=== PATIENT | female | born 1955 | race African-American/Black ===

== ENCOUNTER 2024-03-04 10:47 | Inpatient (IN) | payer OTHER, SELFPAY ==
[2024-03-02 19:32] VITALS: BP 155/100
--- NOTE | 2024-03-02 19:39 | EDRN ---
TRIAGE NOTE BY Billie JULES RN
[2024-03-02 19:53] LABS: Urine Albumin Negative (Neg - Trace); Urine Bilirubin Negative (Negative); Urine Character Clear (Clear); Urine Color Yellow; Urine Glucose Negative (Negative); Urine Ketone Negative (Negative); Urine Leukocyte 1+ (Negative); Urine Nitrite Negative (Negative); Urine Occult Blood Negative (Negative); Urine Specific Gravity 1.015 (<1.030); Urine Urobilinogen Negative (Neg - 1+)
[2024-03-02 19:57] LABS: % Basophils 0.5 % (0-2); % Eosinophils 1.8 % (0-6); % Immature Granulocytes 0.2 % (0-0.5); % Lymphocytes 51.5 % (20.5-51.1); Absolute Eosinophils 0.2 10^3/uL (0-0.7); Absolute Lymphocytes 4.4 10^3/uL (1.2-3.4); Absolute Monocytes 0.6 10^3/uL (0.1-0.6); Absolute Neutrophils 3.3 10^3/uL (1.4-6.5); Hematocrit 36.2 % (37.0-47.0); Hemoglobin 11.6 g/dL (12.0-16.0); Mean Corpuscular Hgb 29.4 pg (27.0-31.0); Mean Corpuscular Volume 91.6 fL (81.0-99.0); Mean Platelet Volume 9.8 fL (7.4-10.4); Nucleated Red Blood Cells % 0 %; Platelet Count 223 10^3/uL (130-400); Red Blood Cell Count 3.95 10^6/uL (4.20-5.40); Red Cell Dist. Width 13.2 % (11.5-14.5); White Blood Cell Count 8.5 10^3/uL (4.8-10.8)
[2024-03-02 20:03] LABS: Urine Red Blood Cell None Seen /HPF (0-2)
[2024-03-02 21:22] LABS: ALT (SGPT) 23 U/L (0-35); AST (SGOT) 31 U/L (14-36); Albumin 4.5 g/dl (3.5-5.0); Alkaline Phosphatase 78 U/L (38-126); Blood Urea Nitrogen 17 mg/dl (7-17); Calcium 10.6 mg/dl (8.4-10.2); Carbon Dioxide 33 mmol/L (22-30); Chloride 97 mmol/L (98-107); Glucose 130 mg/dl (70-99); Potassium 3.8 mmol/L (3.5-5.1); Sodium 138 mmol/L (135-145); Total Bilirubin 0.4 mg/dl (0.2-1.3); Total Protein 7.5 g/dl (6.3-8.2); eGFR > 60.00
[2024-03-03] VITALS (15 sets, daily range): BP systolic 112–145; BP diastolic 52–100; PULSE 72–73; O2SAT 100; BMI 23.6
--- NOTE | 2024-03-03 00:23 | ED.GENMED ---
History of Present Illness
General
Chief Complaint: Change in Mental Status
Source: patient and spouse
Exam Limitations: none
Time Seen by Provider: 03/03/24 00:10
Travel History
Have you had any contact with someone who has COVID-19?: No
Do you have any symptoms of coronavirus? Fever > 100 degrees, chills, cough, shortness of breath, sore throat, loss of taste or smell, muscle aches, or headache?: No
History of Present Illness
History of Present Illness:
See MDM
Past History
Past History
ED Past Medical History: HTN, Hypercholesterolemia and NIDDM
ED Past Surgical History: None
Social History
Tobacco: Non-smoker
Alcohol: None
Phy Exam
Physical Exam
Physical Exam:
See MDM
Scores
NIH Stroke Score
Level of Consciousness: 0 - Alert
LOC Questions: 0-Answers both correctly
LOC Commands: 0-Performs both correctly
Best Horizontal Gaze: 0-Normal
Visual Parr: 0=Normal, no visual loss
Facial Palsy: 0=Normal, symmetrical
Motor - Right Arm: 0=No drift 10 seconds
Motor - Left Arm: 0=No drift 10 seconds
Motor - Right Le-No drift 5 seconds
Motor - Left Le-No drift 5 seconds
Limb Ataxia: 0-Absent
Sensation: 0-Normal
Best Language: 0-No aphasia
Dysarthria: 0-Normal
Extinction and Inattention: 0-No abnormality
Total Score:: 0
Course
Orders/Labs/Results
Orders:
Orders
03/02/24 19:[address] [CT Head W/o Iv Contrast] Urgent
Comment:
Reason For Exam: FALL, CHANGE MENTAL STATUS TODAY
03/02/24 19:45
Complete Blood Count/With Diff Urgent
Comprehensive Metabolic Panel Urgent
Urinalysis Urgent
Date Specimen was Collected: 03/02/24
Time Specimen was Collected: 19:39
Urine Microscopic Urgent
Date Specimen was Collected: 03/02/24
Time Specimen was Collected: 19:39
03/03/24 00:23
Aspirin Chewable [Low Strength Aspirin] 324 mg PO NOW STA
03/03/24 00:32
Electrocardiogram (*1) Urgent
Reason for Study: TIA/Stroke
EKG- Treatment ONCE
Abnormal Lab Results
03/02/24
19:45
RBC 3.95 L 10^6/uL
(4.20-5.40)
Hgb 11.6 L g/dL
(12.0-16.0)
Hct 36.2 L %
(37.0-47.0)
MCHC 32.0 L g/dL
(33.0-37.0)
Absolute Lymphs (auto) 4.4 H 10^3/uL
(1.2-3.4)
Neutrophils % 39.0 L %
(42.2-75.2)
Lymphocytes % 51.5 H %
(20.5-51.1)
Chloride 97 L mmol/L
(98-107)
Carbon Dioxide 33 H mmol/L
(22-30)
Glucose 130 H mg/dl
(70-99)
Calcium 10.6 H mg/dl
(8.4-10.2)
Ur Leukocyte Esterase 1+ A
(Negative)
03/02/24 19:45
03/02/24 19:45
Vital Signs
Initial and Last Documented VS:
Initial Vital Signs
Temp Pulse Resp BP Pulse Ox
97.8 F 78 18 155/100 99
03/02/24 19:32 03/02/24 19:32 03/02/24 19:32 03/02/24 19:32 03/02/24 19:32
Last Documented Vital Signs
Temp Pulse Resp BP Pulse Ox
97.8 F 78 18 145/79 99
03/02/24 19:32 03/02/24 19:32 03/02/24 19:32 03/03/24 01:16 03/03/24 01:17
MDM/Problems Addressed
Differential Diagnosis Includes:
HPI and MDM Narrative:
69-year-old female presenting with resolved slurred speech and arm weakness. at bedside. Patient states she noted that her speech was off a little bit but did not think much of it. She left a voicemail for her daughter. The daughter
called the father indicating that the voicemail appeared slurred. Patient states symptoms lasted for about 30 minutes or so. She states she was recently diagnosed with diabetes. She has a history of high blood pressure and hyperlipidemia.
Patient had a trip and fall a few weeks ago and injured her left forehead. She is unsure if this is related currently, symptoms are resolved
Physical exam
General: Well appearing and non-toxic
HEENT: protecting airway. Bruising to left forehead
Neck: supple
CV: No evidence of cyanosis. Regular rate and rhythm
Resp: No accessory muscle use
Abd: Non-distended
Extremities: No deformities
Neuro: alert. NIH stroke scale 0
Psych: Normal affect
Skin: Intact
Problems Addressed including Acute and Chronic Conditions affecting care:
1. TIA
Acuity: acute
Prognosis: stable
Details: Symptoms currently resolved. Given age and risk factors, will admit. Patient given aspirin. CT head negative
Differential Diagnosis (but not limited to): TIA, stroke, intracranial hemorrhage
Testing considered: CT angiogram head and neck
Drug therapy (if applicable): OTC meds, please see d/c instruction regarding Rx drugs
Amount and/or Complexity of Data Reviewed
Clinical info obtained from: Patient
External data reviewed: N/A
Labs I independently reviewed (but not limited to): White blood cell count normal
Radiology: The CT scan was personally and independently reviewed. In addition, official CT report reviewed.
Pulse Ox: not hypoxic
EKG independently reviewed: Sinus rhythm, normal axis, no STEMI
Construction Rigger: N/A
Critical Care: N/A
Risk of Complication:
Social Determinants of health: Good social support
Discussed with other providers: Hospitalist
Escalation of Care includes Admit/Obs: Given age and risk factors, will admit for TIA workup
Occasional wrong word or 'sound a like' substitutions may have occurred due to the inherent limitations of voice recognition software. Read the chart carefully and recognize, using context, where substitutions have occurred.
*Critical Care Note
Total Time (30-74mins, 75-104mins- exclusive of procedures): Not Applicable
ED Attending Note
-
Portions of this chart may have been created with voice recognition software.� Occasional wrong word or��sound alike� substitutions may have occurred due to the inherent limitations of voice recognition software.
Discharge Plan
Departure
Patient Disposition: Admit
Date of Disposition: 03/03/24
Time of Disposition: 00:30
Admit to: Telemetry
Presentation/result/management discussed w/ accepting MD/DO: Hospitalist
Discharge Problem:
Brain TIA
Interventions
Interventions:
*Risk Screen - Suicide Last Done: 03/02/24 19:32
*General Assessment Last Done: 03/03/24 01:17
*Neglect/Abuse Screening Last Done: 03/02/24 19:32
ED- Fall Risk Assessment Last Done: 03/03/24 01:17
*ED COVID-19 Vaccine History Last Done: 03/03/24 01:17
ED- Pulmonary Assessment Last Done: 03/03/24 01:17
ED- Neurological Assessment Last Done: 03/03/24 01:17
ED- Cardiac Assessment Last Done: 03/03/24 01:17
ED Swallowing Screen Last Done: 03/03/24 01:15
Discharge Date and Time
Print Language: SERBIAN
[2024-03-03] MEDS: LOW STRENGTH ASPIRIN 324 MG PO (01:11)
--- NOTE | 2024-03-03 02:47 | HPS.HSE ---
Family Physician
-
Family Physician: Ana Dasilva, DO
Chief Complaint
-
slurred speech
History of Present Illness
I could not get any information from the patient who is poor historian - is constantly correcting the answers when interview
Patient does not remember the HPI very well
Information gathered by chart review and speaking to at bed side
69F No prior visit to with HX HX HTN , HLD and T2DM seen at ER for evaluation fo abn speech, arm weakness and AMS
Patient tripped and fall 1.5 weeks ago and banged her head - It was mechanical fall
Per spouse , patient is not herself since
Daughter noted slurred speech for about 30 Mins and slow cognitive speed.
NIH was zero at ER for stroke assessment
Medical History
Past Medical History
Past Medical History: Reports HTN, Hypercholesterolemia and NIDDM
Past Surgical History: Reports None
Social History
Tobacco: Non-smoker
Alcohol: None
Drug: None
Family History
Family History: Not pertinent
Allergies / Home Medications
Allergies reflects when Allergies were last updated in [email or web address].
Home Medications with original date entered in [email or web address]
Allergy/Medication List:
Allergies
Allergy/AdvReac Type Severity Reaction Status Date / Time
No Known Allergies Allergy Verified 03/02/24 19:37
If medication reconciliation has not been performed, why?: Medication List N/A
Review of Systems
-
Constitutional: Reports No Symptoms
EENT: Reports No Symptoms
Respiratory: Reports No Symptoms
Cardiac: Reports No Symptoms
Abdomen/GI: Reports No Symptoms
: Reports No Symptoms
Musculoskeletal: Reports No Symptoms
Skin: Reports No Symptoms
Neurological: Reports See HPI and Weakness
Endocrine: Reports No Symptoms
Hematologic/Lymphatic: Reports No Symptoms
Psych: Reports No Symptoms
Physical Exam
Vital Signs
Vital Signs
Temp Pulse Resp BP Pulse Ox
97.8 F 78 18 129/71 98
03/02/24 19:32 03/02/24 19:32 03/02/24 19:32 03/03/24 02:00 03/03/24 02:00
Physical Exam
General: No Apparent Distress
HEENT: Anicteric and Moist mucous membranes
Respiratory: Clear; No Wheezes, Rales or Rhonchi
Cardiac: S1/S2 and Regular Rhythm
Breast: Deferred by me
GI: Soft, Non Tender, Non Distended and Normal Bowel Sounds
Rectal: Deferred by Provider
Genito-urinary: Deferred by me
Musculoskeletal: No Edema
Skin: Warm and Dry
Neuro: Nonfocal/grossly intact
Psych: Calm
Laboratory Results
-
03/02/24 19:45
03/02/24 19:45
Laboratory Results
Total Bilirubin 0.4 mg/dl (0.2-1.3) 03/02/24 19:45
AST 31 U/L (14-36) 03/02/24 19:45
ALT 23 U/L (0-35) 03/02/24 19:45
Alkaline Phosphatase 78 U/L (38-126) 03/02/24 19:45
Data Reviewed
-
CT Scan: Report Reviewed by me
Lab Data: Labs Reviewed by me
Impression/Plan
-
Data
Hgb 11.6
Cl 97
CO2 33
Nl Cr
Nl eGFR
BG 130
Ca 10.6
NEG UA
HCT
1. No CT evidence for acute intracranial hemorrhage or transcortical infarct.
2. Moderate white matter leukoaraiosis in the frontal and parietal lobes.
3. Mild diffuse cerebral and cerebellar volume loss.
EKG
NORMAL SINUS RHYTHM
MINIMAL VOLTAGE CRITERIA FOR LVH, MAY BE NORMAL VARIANT ( Jun product )
POSSIBLE INFERIOR INFARCT , AGE UNDETERMINED
ABNORMAL ECG
NO PREVIOUS ECGS AVAILABLE
No prior admission to
ASSESSMENT [facility] PLAN
Pending Rx reconciliation
Transient abnormal slurred speech for 30 mins with weakness
At ER NIH was zero
Recent mechanical fall and hit head sustained bruise
NEG HCT
Very vague historian ? MCI
DDX : TIA vs post concussion syndrome
- Brain MRI and MRA H & N
- S/P ASA loading - then baby ASA DAILY
- Neuro consult
HLD
- On atorvastatin but did not recall the dose
- ordered Atorvastatin 40 HS
Known HX DMT2 on Metformin
- add ISS low pending Rx reconciliation
- Held Metformin for now
Essential HTN
- add IV Hydralazine PRN only id SBP > 185, DBP > 115
- On Amlodipine per spouse
DVT Px; SCD
Full code
Obs TLM
[2024-03-03 07:35] LABS: Total Cholesterol 169 mg/dl (50-199); Triglyceride 121 mg/dl (10-149); Very Low Density Lipoprotein 24 mg/dl (0-30)
[2024-03-03 08:00] LABS: HDL Cholesterol 65 mg/dl; LDL Cholesterol, Calculated 80 mg/dl
[2024-03-03] MEDS: LOW STRENGTH ASPIRIN 81 MG PO (08:13)
[2024-03-03] MEDS: NORVASC 5 MG PO (08:13)
--- NOTE | 2024-03-03 08:19 | CON.NEURO4 ---
Addendum entered and electronically signed by Vin Flannery MD 03/03/24 10:19:
Studies reviewed.
I have personally examined the patient. I reviewed and agree with the TANK WORKER's Note.
My addenda:
Awake, alert, interactive. No acute distress.
Speech intact.
Follows 2-step requests w/o difficulty. No tremor.
Extra-ocular movements grossly intact.
Facial movements full and symmetric. Hearing intact to normal conversational volume.
Normal UE movements bilaterally.
Neck: full ROM.
Chest: no dyspnea
Heart: no JVD
Ext: (-) Clubbing, (-) Cyanosis, (-) Edema
IMPRESSIONS/RECOMMENDATIONS:
Abrupt onset of slurred speech
Questionably due to TIA/stroke. Differential diagnosis includes seizure although etiology for same is unclear other than the patient's minor head injury recently
Check MRI of brain
Check MRA head and neck
Continue atorvastatin 80 mg daily
Initiated aspirin, continue
Goal of normotension
Goal of normoglycemia
D/W patient
Will continue to follow patient.
Original Note:
Documented by User: Deandra Parnell NP 03/03/24 09:31
Consultation - Neurology 4
-
CONSULTING PHYSICIAN: Vin Flannery MD
REFERRING PHYSICIAN: Hospitalists/Dr. Hugo
DICTATED BY: MILA Solis
DATE/TIME OF REQUEST: 03/02/24
DATE/TIME OF CONSULTATION: 03/03/24
Reason for Consultation: Slurred speech
History of Present Illness:
This is a 69-year-old right-handed female who has presented to the hospital on 03/02/24 with report of slurred speech. Patient has poor insight to yesterday's events so some of this information is obtained from medical records. Patient reports that
two nights ago on 03/01/24 she had a mild headache which was unusual for her. Yesterday afternoon (03/02/24), she reports calling her daughter and her daughter noted that her speech sounded slurred. Her daughter called the patient's spouse to notify
him and when he check on the patient he noted that her speech was slurred as well. He also had her manager golf his hands and felt that both hand grasps were weak. Patient thinks her slurred speech resolved in about 30 minutes but she isn't quite sure. On
arrival to the ER, CT head was obtained and is negative for any acute abnormalities. Blood pressure was 155/100. NIHSS 0. She was not a candidate for TNK/IAT due to resolution of symptoms/NIHSS 0. Today (03/03/24), patient reports feeling back to her
baseline. She denies any headache, dizziness, speech/swallow difficulty, numbness, weakness, nausea, chest pain, palpitations, and shortness of breath. She reports having a trip and fall in her backyard on 02/03/24 with left forehead laceration and
bilateral eye bruising. She was evaluated by her ophtalmologist after the fall and reports her exam was normal. She denies any history of TIA, stroke, or events similar to this in the past. She is not taking any blood-thinning medications.
Past Medical History: HTN, HLD, NIDDM, hypothyroidism
Surgical History: Abdominoplasty.
Family History: Reviewed and noncontributory.
Social History: Denies tobacco, alcohol, and illicit drug use. Lives with her , she is a retired nurse.
Allergies: No known allergies.
Home Medications: See below.
Review of Symptoms:
Patient denies any fever, headache, chest pain, shortness of breath, GI or symptoms.
�Per the HPI.�All systems are reviewed negative except above.
Physical Exam:
The patient is afebrile, abdomen is nondistended, breathing is unlabored, skin is warm and dry, no edema.
NIH Stroke Scale:
I performed the NIH stroke scale on the patient on 03/03/24 at 0830. The patient scored 0 points on the NIH stroke scale assessment, which were assigned as follows: See below.
Neurologic Examination:
The patient is awake, alert and oriented x 3. She is able to follow commands and answer questions appropriately. There is no aphasia or dysarthria. On cranial nerve assessment, pupils are 3 mm bilateral, round and reactive to light and
accommodation. Visual parr are full. Extraocular movements are intact. Facial sensations are intact and bilaterally symmetrical, there is no facial asymmetry. Hearing is intact bilaterally to normal conversation volume. Tongue palate and uvula
are midline. Sternocleidomastoid strengths are full bilaterally. Motor strengths are 5/5 bilateral upper and lower extremities on medical research [place] scale. There is no drift or involuntary movement noted. Deep tendon reflexes are 2+ bilateral
upper and 1+ bilateral lower extremities and Babinski is absent bilaterally. There was no extinction noted on double simultaneous stimulation. Coordination is intact by finger to nose bilaterally.
Lab Results: See below.
Neuro Imaging:
1. CT Head 03/02/24: No CT evidence for acute intracranial hemorrhage or transcortical infarct. Moderate white matter leukoaraiosis in the frontal and parietal lobes. Mild diffuse cerebral and cerebellar volume loss.
Differentials for the patient's presentation include:
1. TIA or small stroke possible given stroke risk factors.
2. Partial seizure possible given recent head injury but less likely.
3. Metabolic abnormality possibly producing transient speech changes.
Patient has the following risk factors for their symptoms: HTN, HLD, NIDDM, age
IV Tenecteplase/IAT candidacy: She was not a candidate for TNK/IAT due to resolution of symptoms/NIHSS 0.
Recommendations:
-Continue aspirin 81mg daily.
-MRI brain, MRA head/neck ordered/pending.
-Permissive hypertension SBP<220, DBP<120 until 1400 this afternoon, then goal normotension.
-Checking blood work for metabolic abnormalities.
-If MRI brain demonstrates a stroke LDL goal will be <70. LDL is 80. Continue home atorvastatin 80mg daily for now.
-Goal normoglycemia, hbA1c is pending.
-PT/OT/ST evaluations.
-NIHSS and neurological checks per unit guidelines.
-Provide patient with a stroke education packet.
-DVT prophylaxis.
-Will follow pending results.
Discussed patient care with: Dr. Flannery, the patient
Vital Signs and Labs
-
Vital Signs and Labs:
Vital Signs
Temp Pulse Resp BP Pulse Ox
97.8 F 64 15 116/74 96
03/02/24 19:32 03/03/24 08:00 03/03/24 08:00 03/03/24 08:00 03/03/24 08:00
Lab Results
03/02/24 19:45
03/02/24 19:45
Sodium 138 mmol/L (135-145) 03/02/24 19:45
Potassium 3.8 mmol/L (3.5-5.1) 03/02/24 19:45
BUN 17 mg/dl (7-17) 03/02/24 19:45
Glucose 130 mg/dl (70-99) H 03/02/24 19:45
Calcium 10.6 mg/dl (8.4-10.2) H 03/02/24 19:45
LDL Cholesterol, Calc 80 mg/dl 03/03/24 07:12
Medications
-
Active Medications
Generic Name Dose Route Start Last Admin
Trade Name Freq PRN Reason Stop Dose Admin
Acetaminophen 650 mg 03/03/24 04:03
Acetaminophen 650 Mg Rectal Suppository RECTAL 03/31/24 04:02
Q4HPRN PRN
ALEGRE, mild pain, or temp >100.4F
Acetaminophen 650 mg 03/03/24 04:03
Acetaminophen 325 Mg Tablet PO 03/31/24 04:02
Q4HPRN PRN
ALEGRE, mild pain, or temp >100.4F
Amlodipine Besylate 5 mg 03/03/24 08:00 03/03/24 08:13
Amlodipine 5 Mg Tablet PO 03/31/24 07:59 5 mg
DAILY DULCE MARIA Administration
Aspirin 81 mg 03/03/24 08:00 03/03/24 08:13
Aspirin 81 Mg Chewable Tablet PO 03/31/24 07:59 81 mg
DAILY DULCE MARIA Administration
Atorvastatin Calcium 80 mg 03/03/24 18:00
Atorvastatin (Lipitor) 80 Mg Tablet PO 03/31/24 17:59
QPM DULCE MARIA
Dextrose 12.5 grams 03/03/24 04:03
Dextrose 50% (0.5 Grams/Ml) 50 Ml Syringe IV 03/31/24 04:02
[id number] PRN
hypoglycemia
Protocol
Glucagon 1 mg 03/03/24 04:03
Glucagon 1 Mg Vial IM 03/31/24 04:02
PRN PRN
hypoglycemia
Protocol
Hydralazine HCl 5 mg 03/03/24 04:03
Hydralazine 20 Mg/Ml Vial IV 03/31/24 04:02
Q6HPRN PRN
SBP > 185, DBP > 115
Insulin Aspart 0 units 03/03/24 07:30 03/03/24 08:47
Insulin Aspart Low Resistance 300 Units/3 Ml Pen.Injctr SC 03/31/24 07:29 Not Given
AC DULCE MARIA
Protocol
Sodium Chloride 0 flush 03/03/24 05:00
Sodium Chloride 0.9% (Flush) Syringe IV 03/31/24 04:59
PER PROTOCOL DULCE MARIA
Home Medications
�Medication �Instructions �Recorded
amlodipine 2.5 mg tablet 2.5 mg PO DAILY 03/03/24
atorvastatin 80 mg tablet 80 mg PO DAILY 03/03/24
hydrocortisone 1 % topical cream 1 applic topical TID PRN soreness 03/03/24
levothyroxine 88 mcg tablet 88 mcg PO DAILY 03/03/24
metformin 500 mg tablet 1,000 mg PO HS 03/03/24
metoprolol succinate 25 mg capsule 25 mg PO DAILY 03/03/24
sprinkle, ext. release 24 hr
valsartan 160 1 tab PO DAILY 03/03/24
mg-hydrochlorothiazide 12.5 mg
tablet
NIH Stroke Score
Subsequent NIH Scale
Date of Subsequent NIH Scale: 03/03/24
Time of Subsequent NIH Scale: 08:30
NIH Stroke Score
Level of Consciousness: 0 - Alert
LOC Questions: 0-Answers both correctly
LOC Commands: 0-Performs both correctly
Best Horizontal Gaze: 0-Normal
Visual Parr: 0=Normal, no visual loss
Facial Palsy: 0=Normal, symmetrical
Motor - Right Arm: 0=No drift 10 seconds
Motor - Left Arm: 0=No drift 10 seconds
Motor - Right Le-No drift 5 seconds
Motor - Left Le-No drift 5 seconds
Limb Ataxia: 0-Absent
Sensation: 0-Normal
Best Language: 0-No aphasia
Dysarthria: 0-Normal
Extinction and Inattention: 0-No abnormality
Total Score:: 0

Documented by User: Vin Flannery MD 03/03/24 10:11
NIH Stroke Score
NIH Stroke Score
Total Score:: 0
[2024-03-03 08:47] LABS: Glucose - Point of Care 111 mg/dl (70-99)
[2024-03-03 09:31] LABS: Glycohemoglobin (HgbA1c) 6.7 % (4.0-5.6)
--- NOTE | 2024-03-03 09:39 | PTOTSP ---
Patient independent with all mobility, no skilled PT needs at this time.
--- NOTE | 2024-03-03 09:39 | PTOTSP ---
Pt is independent in all areas of self care and functional mobility/transfer with no device. No strength/sensation/vision/cognitive impairments noted. No skilled OT services warranted. Will sign off.
[2024-03-03 10:11] LABS: Erythrocyte Sed Rate 26 mm/hour (0-20)
--- NOTE | 2024-03-03 12:16 | W.PN.HOSP.TC ---
Today's Communication/Plan
-
MRI of the brain.
Assessment / Plan
Assessment / Plan
Impression:
Presentation with reported slurred speech, generalized weakness and episode of amnesia
Concern for TIA/CVA, less likely partial seizure.
Essential hypertension.
Type 2 diabetes
Dyslipidemia
Hypothyroidism.
Plan:
Neurologic status stable with no focal findings on exam
Mentation/cognition back to baseline.
CT scan of the head in ED with no acute abnormalities.
Neurology input appreciated.
MRI of the brain
Neurologic monitoring.
Initiated on aspirin.
Essential hypertension
Resume preadmission regimen including amlodipine, metoprolol, valsartan/HCTZ
Monitor blood pressure trend with goal of normotension
Hypothyroidism on replacement continue levothyroxine
Type 2 diabetes
Hemoglobin A1c 6.7.
Continue metformin
Continue carbohydrate controlled diet
Dyslipidemia
Continue statin
Anticipated Discharge: Within 24 hours
Subjective/Interval History
-
Date of Service: March 03, 2024
Objective Data
-
Vital Signs:
Vital Signs
Temp Pulse Resp BP Pulse Ox
97.8 F 73 27 122/82 99
03/02/24 19:32 03/03/24 10:30 03/03/24 10:30 03/03/24 10:00 03/03/24 10:30
Physical Exam
-
General: Well Developed and No Apparent Distress
HEENT: Normocephalic, Atraumatic and Moist Mucous Membranes
Respiratory: Clear to Auscultation
Cardiac: Regular Rhythm and S1/S2; Negative Murmur, Rub or Gallop
GI: Soft, Nontender, Nondistended and Normal Bowel Sounds; Negative Organomegaly
Rectal: Deferred by Provider
Musculoskeletal: No Clubbing, No Cyanosis and No Edema
Skin: Negative Rash
Neuro: Awake, Alert, Oriented, AO x 3 and Nonfocal/Grossly Intact
[2024-03-03 13:53] LABS: Glucose - Point of Care 88 mg/dl (70-99)
[2024-03-03] MEDS: GLUCOPHAGE XR EXTENDED RELEASE 1000 MG PO (13:54)
[2024-03-03] MEDS: DIOVAN 160 MG PO (13:55)
[2024-03-03] MEDS: ORETIC 12.5 MG PO (13:56)
[2024-03-03] MEDS: NORVASC PO (13:56)
[2024-03-03] MEDS: SYNTHROID 88 MCG PO (13:57)
[2024-03-03] MEDS: TOPROL XL 25 MG PO (13:57)
--- NOTE | 2024-03-03 14:28 | PTCARENOTE ---
Received patient from ER awake and alert able to make needs known. Ambulates with steady gait , speech clear. No c/o pain . Oriented to unit.
[2024-03-03 14:56] LABS: Ferritin 20.8 ng/ml (11.1-264.0); TSH Reflex To Free T4 1.14 uIU/ml (0.47-4.68); Vitamin B12 761 pg/ml (239-931)
[2024-03-03 14:57] LABS: Folate > 20.0 ng/ml (2.76-20)
[2024-03-03 16:26] LABS: Glucose - Point of Care 126 mg/dl (70-99)
[2024-03-03] MEDS: GLUCOPHAGE XR EXTENDED RELEASE PO (16:58)
[2024-03-03] MEDS: LIPITOR 80 MG PO (17:29)
[2024-03-03] MEDS: THERAGRAN 1 TABLET PO (21:00)
[2024-03-03] MEDS: FEOSOL 325 MG PO (21:00)
[2024-03-03 21:56] LABS: Glucose - Point of Care 148 mg/dl (70-99)
[2024-03-04 03:40] VITALS: BP 118/76
--- NOTE | 2024-03-04 04:53 | DOWNTIME ---
There was a [employer] Strategic Planning Manager Downtime on 03/04/2024 from 0100 to 03/04/2024 at 0439. Downtime documentation of patient's care, including medication administrations, has been reconciled in the electronic record per guidelines. Refer to the
patient's paper chart under the miscellaneous tab to see printed paper medication records and downtime forms.
[2024-03-04 07:55] VITALS: BP 123/61
[2024-03-04] MEDS: SYNTHROID 88 MCG PO (07:56)
[2024-03-04 08:17] LABS: Glucose - Point of Care 104 mg/dl (70-99)
--- NOTE | 2024-03-04 08:51 | W.PN.NEURO.1 ---
Today's Communication / Plan
-
Continue Atorvastatin 80 mg daily
Start Ezetimibe due to LDL > 70 despite Atorvastatin at maximal dosing and new stroke due to vascular occlusion
Continue ASA, lifelong
Add Clopidogrel for 21 days total
Goal of normotension
Goal of normoglycemia
provide Prochlorperazine for headache prn
Neuro Assessment/Plan
Assessment
IMPRESSIONS/RECOMMENDATIONS:
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
Plan
Continue Atorvastatin 80 mg daily
Start Ezetimibe due to LDL > 70 despite Atorvastatin at maximal dosing and new stroke due to vascular occlusion
Continue ASA, lifelong
Add Clopidogrel for 21 days total
Goal of normotension
Goal of normoglycemia
provide Prochlorperazine for headache prn
Will follow as needed.
Subjective/Objective
Subjective Data
Date of Service: March 04, 2024
No recurrence of symptoms
Objective Data
Vital Signs
Temp Pulse Resp BP Pulse Ox
36.4 C 73 16 123/61 100
03/04/24 07:55 03/04/24 07:55 03/04/24 07:55 03/04/24 07:55 03/04/24 07:55
Lab Results
03/02/24 19:45
03/02/24 19:45
Sodium 138 mmol/L (135-145) 03/02/24 19:45
Potassium 3.8 mmol/L (3.5-5.1) 03/02/24 19:45
BUN 17 mg/dl (7-17) 03/02/24 19:45
Glucose 130 mg/dl (70-99) H 03/02/24 19:45
Calcium 10.6 mg/dl (8.4-10.2) H 03/02/24 19:45
LDL Cholesterol, Calc 80 mg/dl 03/03/24 07:12
Vitamin B12 761 pg/ml (239931) 03/03/24 07:12
Patient Allergies
No Known Allergies Allergy (Verified 03/02/24 19:37)
Review of Systems
-
History Source: Patient
All other systems: Reviewed and negative
Physical Exam
-
General: No Apparent Distress and Appears Stated Age
Eyes: Round OU, Albia Conjunctivae and No Ptosis
HEENT: Anicteric and Moist Mucous Membranes
Neck: Full Range of Motion
Respiratory: No Dyspnea
Cardiac: No JVD
GI: Non-distended
Skin: Unremarkable
Extremities: No Clubbing, No Cyanosis and No Edema
Psych: Intact Judgement/Insight
Extended Neurological Exam
Mood & Affect: Mood Unremarkable and Affect Unremarkable
Attention Span & Concentration: Awake, Alert and Interactive
Memory: Unremarkable
Tremor: Hand Tremor Absent and Head Tremor Absent
Involuntary Movement: None
Speech: Quality Unremarkable and Quantity Unremarkable
Cranial Nerve II: Left Eye: Pupillary Size Unremarkable and Visual Parr Grossly Intact
Cranial Nerve II: Right Eye: Pupillary Size Unremarkable and Visual Parr Grossly Intact
Cranial Nerves III, IV, : Extraocular Movement: Grossly Intact
Cranial Nerve VII: Facial Symmetry: Normal Facial Symmetry
Cranial Nerve VIII: Hearing: Unremarkable Hearing to Normal Conversational Volume
Muscle Strength, Overall: Spontaneously Moves (All extremities)
Muscle Bulk & Tone: Bulk Unremarkable and Tone Unremarkable
Coordination: Reaches for Objects without Difficulty
Data Reviewed
-
MRI Head: Report Reviewed and Image Reviewed
MRA Head: Report Reviewed and Image Reviewed
MRA Neck: Report Reviewed
Reviewed with: Nurse Practioner and Patient
Old Records: Summarized
Past History
Past History
ED Past Medical History: CVA (L MCA ), HTN, Hypercholesterolemia, NIDDM and Other (Left M2 occlusion)
ED Past Surgical History: None
Social History
Tobacco: Non-smoker
Alcohol: None
Personal:
Living: with family
Family History
Family History: Other (reviewed and non-contributory)
Medications
-
Medications:
Generic Name Dose Route Start Last Admin
Trade Name Freq PRN Reason Stop Dose Admin
Acetaminophen 650 mg 03/03/24 04:03
Acetaminophen 325 Mg Tablet PO 03/31/24 04:02
Q4HPRN PRN
ALEGRE, mild pain, or temp >100.4F
Amlodipine Besylate 2.5 mg 03/03/24 13:00 03/03/24 13:56
Amlodipine 2.5 Mg Tablet PO 03/31/24 12:59 Not Given
DAILY DULCE MARIA
Aspirin 81 mg 03/03/24 08:00 03/03/24 08:13
Aspirin 81 Mg Chewable Tablet PO 03/31/24 07:59 81 mg
DAILY DULCE MARIA Administration
Atorvastatin Calcium 80 mg 03/03/24 18:00 03/03/24 17:29
Atorvastatin (Lipitor) 80 Mg Tablet PO 03/31/24 17:59 80 mg
QPM DULCE MARIA Administration
Clopidogrel Bisulfate 75 mg 03/04/24 08:00
Clopidogrel 75 Mg Tablet PO 03/25/24 07:59
DAILY DULCE MARIA
Dextrose 12.5 grams 03/03/24 04:03
Dextrose 50% (0.5 Grams/Ml) 50 Ml Syringe IV 03/31/24 04:02
[id number] PRN
hypoglycemia
Protocol
Docusate Sodium 100 mg 03/03/24 14:58
Docusate Sodium 100 Mg Capsule PO 03/31/24 14:57
BIDPRN PRN
no BM > 24 hours
Ezetimibe 10 mg 03/04/24 22:00
Ezetimibe (Zetia) 10 Mg Tablet PO 04/01/24 21:59
HS DULCE MARIA
Ferrous Sulfate 325 mg 03/03/24 22:00 03/03/24 21:00
Ferrous Sulfate 325 Mg Tablet PO 03/31/24 21:59 325 mg
HS DULCE MARIA Administration
Glucagon 1 mg 03/03/24 04:03
Glucagon 1 Mg Vial IM 03/31/24 04:02
PRN PRN
hypoglycemia
Protocol
Hydrochlorothiazide 12.5 mg 03/03/24 12:30 03/03/24 13:56
Hydrochlorothiazide 12.5 Mg Tablet PO 03/31/24 12:29 12.5 mg
DAILY DULCE MARIA Administration
Hydrocortisone 1 applic 03/03/24 14:11
Hydrocortisone 1% (Cream) Tube TOPICAL 03/31/24 14:10
TIDPRN PRN
apply to rectum
Insulin Aspart 0 units 03/03/24 07:30 03/03/24 16:59
Insulin Aspart Low Resistance 300 Units/3 Ml Pen.Injctr SC 03/31/24 07:29 Not Given
AC DULCE MARIA
Protocol
Levothyroxine Sodium 88 mcg 03/03/24 13:00 03/04/24 07:56
Levothyroxine 88 Mcg Tablet PO 03/31/24 12:59 88 mcg
DAILY DULCE MARIA Administration
Metformin HCl 1,000 mg 03/04/24 18:00
Metformin 500 Mg Extended Release Tablet PO 04/01/24 17:59
QPM DULCE MARIA
Metoprolol Succinate 25 mg 03/03/24 13:00 03/03/24 13:57
Metoprolol 25 Mg Extended Release Tablet PO 03/31/24 12:59 25 mg
DAILY DULCE MARIA Administration
Multivitamins Therapeutic 1 tablet 03/03/24 22:00 03/03/24 21:00
Multivitamin Tablet PO 03/31/24 21:59 1 tablet
HS DULCE MARIA Administration
Sodium Chloride 0 flush 03/03/24 05:00
Sodium Chloride 0.9% (Flush) Syringe IV 03/31/24 04:59
PER PROTOCOL DULCE MARIA
Valsartan 160 mg 03/03/24 12:30 03/03/24 13:55
Valsartan 80 Mg Tablet PO 03/31/24 12:29 160 mg
DAILY DULCE MARIA Administration
[2024-03-04] MEDS: DIOVAN 160 MG PO (10:01)
[2024-03-04] MEDS: LOW STRENGTH ASPIRIN 81 MG PO (10:02)
[2024-03-04] MEDS: TOPROL XL 25 MG PO (10:02)
[2024-03-04] MEDS: ORETIC 12.5 MG PO (10:02)
[2024-03-04] MEDS: NORVASC 2.5 MG PO (10:02)
[2024-03-04] MEDS: PLAVIX 75 MG PO (10:05)
[2024-03-04 11:56] LABS: Glucose - Point of Care 131 mg/dl (70-99)
--- NOTE | 2024-03-04 11:56 | W.DS.TRANS ---
DC Summary - [employer]
-
Discharge Instructions:
Discharge Diagnosis/Procedures CVA.
Diet Diabetic, Carb Controlled
Instructions:
Stand-Alone Forms:
Changes to Home Medications: Yes
Discharge Medications:
DC Medications w/original date entered in [employer]
Dim Supplement 1 cap PO DAILY Supplement 03/03/24
Ringing Ear Supplement 2 tab PO BID Supplement 03/03/24
amlodipine 2.5 mg tablet 2.5 mg PO DAILY Blood Pressure 03/03/24
atorvastatin 80 mg tablet 80 mg PO QPM High Cholesterol 03/03/24
hydrocortisone 1 % topical cream with perineal applicator 1 applic TN TIDPRN PRN apply to rectum 03/03/24
levothyroxine 88 mcg tablet 88 mcg PO DAILY Thyroid 03/03/24
metformin 500 mg tablet,extended release 24 hr 1,000 mg PO QPM Diabetes 03/03/24
metoprolol succinate 25 mg tablet,extended release 24 hr 25 mg PO DAILY Blood Pressure 03/03/24
therapeutic multivitamin 1 tab PO HS Supplement 03/03/24
valsartan 160 mg-hydrochlorothiazide 12.5 mg tablet 1 tab PO DAILY Blood Pressure 03/03/24
aspirin 81 mg chewable tablet (Children's Aspirin) 81 mg PO DAILY #30 tabs 03/04/24
clopidogrel 75 mg tablet 75 mg PO DAILY #21 tabs 03/04/24
ezetimibe 10 mg tablet 10 mg PO HS #30 tabs 03/04/24
pantoprazole 20 mg tablet,delayed release 20 mg PO DAILY #30 tabs 03/04/24
Home Medication Changes
DAPT, PPI added
Zetia added
Pending Results: No
[2024-03-04] MEDS: PROTONIX 20 MG PO (12:09)
[2024-03-04 12:13] VITALS: BP 127/74
--- NOTE | 2024-03-04 15:08 | CM ---
Patient seen bedside.
IA completed.
Patient lives with spouse in 2 story home.
Independent prior to admission without assistive devices.
patient works and drives.
PT evals completed, no needs.
IMM completed.
Patient anxious to leave, spouse here to drive her home.
Patient requested copy of all films.
PCP: Dr Dasilva
Pharmacy: [facility]
Plan: home no needs.
== END 2024-03-04 15:45 | disposition home or self-care (01) | DRG 66 ==
LOC: 4 WEST ACU 10:47
PROVIDERS: ADMITTING PHYSICIAN Internal Medicine; ATTENDING PHYSICIAN Internal Medicine; CONSULT PHYSICIAN Psychiatry & Neurology Neurology; EMERGENCY PHYSICIAN Student in an Organized Health Care Education/Training Program; FAMILY PHYSICIAN Family Medicine
DX: I63.9 Cerebral infarction, unspecified (principal); Z79.82 Long term (current) use of aspirin; I10 Essential (primary) hypertension; E11.9 Type 2 diabetes mellitus without complications; E03.9 Hypothyroidism, unspecified; E78.00 Pure hypercholesterolemia, unspecified; R29.700 NIHSS score 0; I66.02 Occlusion and stenosis of left middle cerebral artery
CPT/HCPCS: 70450; 70544; 70548; 70551; 80053; 80061; 81003; 81015; 82607; 82728; 82746; 82962; 83036; 84443; 85025; 85652; 92523; 93005; 99285; A9585